=== PATIENT | female | born 1950 | race Hispanic/Latino ===

== ENCOUNTER 2017-12-27 12:23 | Emergency (ER) | payer MEDICARE ==
[2017-12-27 12:56] VITALS: BP 154/64; PULSE 74; RESP 18; TEMP 97; O2SAT 98; BMI 24.0
--- NOTE | 2017-12-27 13:37 | ED PDOC ---
HPI: Psych/Substance Abuse Time Seen by Provider: 12/27/17 12:29 Chief Complaint (Nursing): Psychiatric Evaluation Chief Complaint (Provider): psychiatric evaluation History Per: Patient History/Exam Limitations: no limitations Onset/Duration Of Symptoms: Hrs (today) Current Symptoms Are (Timing): Still Present Associated Symptoms: denies: Suicidal Thoughts, Suicidal Plan Additional Complaint(s): Catia Castañeda is a 67 year old female, with no significant past medical history, who was brought to the emergency department by EMS for psychiatric evaluation. Patient states she doesn't know why they brought her here and reports she was picked up from her house. Patient is upset that they forced her to come down to ED. Patient denies having any physical complaints at this time. She denies any fever, chills, cough, congestion, chest pain, shortness of breath, nausea, vomit, diarrhea, abdominal pain, injuries or falls, headache, dizziness, numbness or tingling, weakness, suicidal or homicidal ideation. No further medical complaints. PMD: None provided. Past Medical History Reviewed: Historical Data, Nursing Documentation, Vital Signs Vital Signs: Last Vital Signs Temp 97 F L 12/27/17 12:55 Pulse 74 12/27/17 12:55 Resp 18 12/27/17 12:55 BP 154/64 H 12/27/17 12:55 Pulse Ox 98 12/27/17 12:55 - Medical History PMH: Hypercholesterolemia - Surgical History Surgical History: No Surg Hx - Family History Family History: States: Unknown Family Hx - Living Arrangements Living Arrangements: Alone - Social History Current smoker - smoking cessation education provided: No Alcohol: None Drugs: Denies - Allergies Allergies/Adverse Reactions: Allergies Allergy/AdvReac Type Severity Reaction Status Date / Time No Known Allergies Allergy Verified 12/27/17 12:52 Review of Systems ROS Statement: Except As Marked, All Systems Reviewed And Found Negative Constitutional: Negative for: Fever, Chills ENT: Negative for: Nose Congestion Cardiovascular: Negative for: Chest Pain Respiratory: Negative for: Cough, Shortness of Breath Gastrointestinal: Negative for: Nausea, Vomiting, Abdominal Pain, Diarrhea Neurological: Negative for: Weakness, Numbness (tingling), Headache, Dizziness Psych: Negative for: Suicidal ideation (or homicidal ideation) Physical Exam - Reviewed Nursing Documentation Reviewed: Yes Vital Signs Reviewed: Yes - Physical Exam Appears: Positive for: No Acute Distress Head Exam: Positive for: ATRAUMATIC, NORMAL INSPECTION, NORMOCEPHALIC Skin: Positive for: Normal Color, Warm, Dry Eye Exam: Positive for: Normal appearance, EOMI, PERRL ENT: Positive for: Normal ENT Inspection Neck: Positive for: Painless ROM, Supple Cardiovascular/Chest: Positive for: Regular Rate, Rhythm. Negative for: Murmur Respiratory: Positive for: Normal Breath Sounds. Negative for: Respiratory Distress Gastrointestinal/Abdominal: Positive for: Normal Exam, Soft. Negative for: Tenderness, Guarding, Rebound Back: Positive for: Normal Inspection. Negative for: L CVA Tenderness, R CVA Tenderness, Vertebral Tenderness Extremity: Positive for: Normal ROM (upper and lower extremities). Negative for: Deformity, Swelling Neurologic/Psych: Positive for: Alert, organ teacher II-XII, Oriented. Negative for: Mo tor/Sensory Deficits, Aphasia, Facial Droop - Laboratory Results Result Diagrams: 12/27/17 13:45 12/27/17 13:45 Interpretation Of Abn Labs: no acute - ECG ECG: Positive for: Interpreted By Me, Viewed By Me ECG Rhythm: Positive for: Normal ST Segment, Sinus Rhythm O2 Sat by Pulse Oximetry: 98 (RA) Pulse Ox Interpretation: Normal - CT Scan/US head Other Rad Studies (CT/US): Read By Radiologist Other Rad Interpretation: no acute - Progress ED Course And Treament: 1433:: Crisis saw pt. Does not meet criteria for admit. Fu with pcp. Is aaox3. Ambulated with no issues. Has capacity to make decisions. Mini Mental Status Exam intact. Medical Decision Making Medical Decision Making: Time: 12:29 Initial Impression: psychiatric evaluation Initial Plan: --Head w/o contrast [CT] --EKG --Alcohol serum --BMP --Drug screen, urine --Troponin I --Crisis evaluation as per order --Urine dip --CBC w/ differential --Reevaluation 13:50 -Patient was seen by plant care worker and is psychiatrically clear for discharge home. 14:[address] FINDINGS: HEMORRHAGE: No acute parenchymal, subarachnoid or extra-axial hemorrhage. BRAIN: Mild chronic periventricular white matter ischemic changes the seen extending peripherally into the deep and to a lesser degree subcortical white matter both cerebral hemispheres. There may also be a few scattered tiny chronic bilateral basal nuclei lacunar type infarcts. No obvious parenchymal mass or collection. Moderate generalized volume loss. Vascular calcifications both carotid siphons and left vertebral artery. VENTRICLES: No obstructive hydrocephalus. CALVARIUM: Calvarium intact. PARANASAL SINUSES: Unremarkable as visualized. No significant inflammatory changes. MASTOID AIR CELLS: Unremarkable as visualized. No inflammatory changes. OTHER FINDINGS: None. IMPRESSION: No acute intracranial hemorrhage. Mild chronic white matter ischemic changes with a few scattered chronic bilateral basal nuclei lacunar type infarcts. Moderate generalized volume appeared ----- Scribe Attestation: Documented by Dennis Medina, acting as a scribe for Abdulaziz Santamaria MD. Provider Scribe Attestation: All medical record entries made by the Scribe were at my direction and personally dictated by me. I have reviewed the chart and agree that the record accurately reflects my personal performance of the history, physical exam, medical decision making, and the department course for this patient. I have also personally directed, reviewed, and agree with the discharge instructions and disposition. Disposition - Clinical Impression Clinical Impression: Normal exam - Patient ED Disposition Is Patient to be Admitted: No Counseled Patient/Family Regarding: Studies Performed, Diagnosis, Need For Followup - Disposition Referrals: [facility] RAS[facility] WALL [Primary Care Provider] - 12/29/17 Disposition Time: 14:00 Condition: STABLE Additional Instructions[facility] [address] [phone] Instructions: Delirium (Confusion)
[2017-12-27 13:56] LABS: BASO # 0.1 K/uL (0.0-0.2); BASO % 1.4 % (0.0-2.0); EOS # 0.1 K/uL (0.0-0.7); HEMOGLOBIN 14.4 g/dL (12.0-16.0); LYMPH # 2.4 K/uL (1.0-4.3); MEAN CELL VOLUME 89.3 fl (81.0-99.0); MEAN CORPUSCULAR HEMOGLOBIN 30.1 pg (27.0-31.0); MEAN CORPUSCULAR HGB CONC 33.7 g/dL (33.0-37.0); MEAN PLATELET VOLUME 10.1 fl (7.2-11.7); MONO # 0.5 K/uL (0.0-0.8); MONO % 6.4 % (0.0-10.0); NEUT # 4.5 K/uL (1.8-7.0); NEUT % 59.2 % (50.0-75.0); RBC 4.79 Mil/uL (3.80-5.20); RED CELL DISTRIBUTION WIDTH 12.1 % (11.5-14.5); WHITE BLOOD COUNT 7.6 K/uL (4.8-10.8)
--- NOTE | 2017-12-27 14:13 | CT ---
Date of service: 12/27/2017 PROCEDURE: CT HEAD WITHOUT CONTRAST. HISTORY: headache COMPARISON: None available. TECHNIQUE: Axial computed tomography images were obtained through the head/brain without intravenous contrast. Radiation dose: Total exam DLP = 730.81 mGy-cm. This CT exam was performed using one or more of the following dose reduction techniques: Automated exposure control, adjustment of the mA and/or kV according to patient size, and/or use of iterative reconstruction technique. FINDINGS: HEMORRHAGE: No acute parenchymal, subarachnoid or extra-axial hemorrhage. BRAIN: Mild chronic periventricular white matter ischemic changes the seen extending peripherally into the deep and to a lesser degree subcortical white matter both cerebral hemispheres. There may also be a few scattered tiny chronic bilateral basal nuclei lacunar type infarcts. No obvious parenchymal mass or collection. Moderate generalized volume loss. Vascular calcifications both carotid siphons and left vertebral artery. VENTRICLES: No obstructive hydrocephalus. CALVARIUM: Calvarium intact. PARANASAL SINUSES: Unremarkable as visualized. No significant inflammatory changes. MASTOID AIR CELLS: Unremarkable as visualized. No inflammatory changes. OTHER FINDINGS: None. IMPRESSION: No acute intracranial hemorrhage. Mild chronic white matter ischemic changes with a few scattered chronic bilateral basal nuclei lacunar type infarcts. Moderate generalized volume appeared
[2017-12-27 14:26] LABS: BLOOD UREA NITROGEN 12 mg/dl (7-17); CALCIUM 9.3 mg/dL (8.4-10.2); GFR NON-AFRICAN AMERICAN > 60
--- NOTE | 2017-12-28 02:56 | CARD ---
APPROVED REPORT Date of service: 12/27/2017 EKG Measurement Heart [id number] <Conclusion> Normal sinus rhythm Nonspecific T wave abnormality Abnormal ECG
== END 2017-12-27 15:01 | disposition home or self-care (01) ==
LOC: H.ER 12:23 → SUPCPDRO 12:23 → H.ER 15:01
DX: Z00.00 Encounter for general adult medical examination without abnormal findings (principal); Z86.59 Personal history of other mental and behavioral disorders; Z00.8 Encounter for other general examination
CPT/HCPCS: 70450; 80048; 82948; 84484; 85025; 93005; 99283; G0480